=== PATIENT | female | born 1960 | race Caucasian/White ===

== ENCOUNTER 2022-02-27 12:32 | Emergency (ER) | payer OTHER ==
[~2022-02-27] VITALS: Ht 167.6 cm; Wt 71.4 kg
[2022-02-27] MEDS ORDERED: ATEN-73 PO (12:41)
[2022-02-27] MEDS ORDERED: SODIUM CHLORIDE 0.9% 1,000 ML IV ONE (14:30)
[2022-02-27] MEDS ORDERED: METOCLOPRAMIDE HCL 5 MG/ML 2 ML VIAL IVP ONE (14:30)
[2022-02-27] MEDS ORDERED: KETOROLAC TROMETHAMINE 30 MG/ML VIAL IVP ONE (14:30)
[2022-02-27] MEDS ORDERED: DiphenhydrAMINE HCL 50 MG/ML VIAL IVP ONE (14:30)
[2022-02-27] MEDS ORDERED: ACETAMINOPHEN 500 MG TABLET PO ONE (14:30)
[2022-02-27 17:09] VITALS: BP 150/82
== END 2022-02-27 17:12 | disposition home or self-care (01) ==
LOC: EMS 12:36
DX: R51.9 Headache, unspecified (principal); I10 Essential (primary) hypertension; Z98.890 Other specified postprocedural states
CPT/HCPCS: 99284; 96374; 96375; 96361; J1200; J1885; J2765; J7030